=== PATIENT | female | born 1985 | race Caucasian/White ===

== ENCOUNTER 2020-11-24 10:33 | Emergency (ER) | payer MEDICAID, SELFPAY ==
--- NOTE | ~2020-11-24 | CT_ITS ---
EXAMINATION: CT ABDOMEN AND PELVIS WITHOUT CONTRAST CLINICAL INFORMATION: Upper abdominal pain. COMPARISON: None TECHNIQUE: Multidetector volumetric imaging was performed from the superior aspect of the liver through the pubic symphysis. Sagittal and coronal reformatted images were obtained on the technologist's workstation. This CT examination was performed using dose optimization techniques as appropriate, variously including the following: *Automated exposure control *Adjustment of mA and/or kV according to patient size (this includes techniques or standardized protocols for targeted exams where dose is matched to indication/reason for exam; i.e. extremities or head) *Use of iterative reconstruction technique DLP: 1095 mGy-cm FINDINGS: LUNG BASES: The visualized lung bases are unremarkable. LIVER, GALLBLADDER, AND BILIARY TREE: The liver is normal in size, shape, and attenuation. No focal hepatic lesion or biliary ductal dilatation is present. The gallbladder is unremarkable with no evidence of radiopaque gallstones, gallbladder wall thickening, or obvious pericholecystic inflammatory changes. PANCREAS: Unremarkable. SPLEEN: Unremarkable. ADRENAL GLANDS: The left adrenal gland is enlarged measuring 1.6 cm and -1.78 Hounsfield units likely benign myolipoma. KIDNEYS AND URETERS: The kidneys are normal in size, shape, and attenuation. No hydronephrosis, hydroureter, or calculi seen. No perinephric stranding. BLADDER: Unremarkable. GASTROINTESTINAL TRACT: The small and large bowel are unremarkable. The appendix is unremarkable. ABDOMINAL WALL: There is a small umbilical hernia containing intraperitoneal fat. LYMPH NODES: Normal. VASCULAR: Unremarkable. PELVIC VISCERA: There is a left ovarian lesion consistent of fatty tissue and calcification consistent with normal right hip. It measures approximately 2.6 x 1.9 x 2.4 cm. The uterus is anteverted OSSEOUS STRUCTURES: There is loss of disc height and vacuum disc phenomena L5-S1 disc level. No lytic or sclerotic process seen. CT/CT abdomen pelvis wo con IMPRESSION: No acute intra-abdominal process seen. Left ovarian dermoid. Left adrenal myolipoma. Small umbilical hernia.
[2020-11-24 11:01] VITALS: BP 129/87; PULSE 108; RESP 17; TEMP 35.6; O2SAT 98; BMI 40.7
[2020-11-24 11:29] LABS: Glucose Urine UA NEG (NEG); Leukocyte Esterase Urine NEG (NEG); Nitrite Urine NEG (NEG); PH 6.5 (5.0-8.0); Specific Gravity - Urine 1.015 (1.005-1.025); UACC Culture Trigger NO; Urine Blood 1+ (NEG); Urine Ketones 40 MG/DL (NEG); Urine Protein TRACE MG/DL (NEG-TRACE)
[2020-11-24 11:30] LABS: Appearance Urine HAZY; Color Urine YELLOW
[2020-11-24 11:32] LABS: UPreg QC Valid YES; Urine Pregnancy NEGATIVE (NEGATIVE)
[2020-11-24 11:41] LABS: Bacteria Urine 3+ /LPF; Squamous Epithelial Cell Urine 3+ /LPF
--- NOTE | 2020-11-24 12:32 | ED_ITS ---
HPI - Abdominal Pain General Chief Complaint: Abdominal Pain Stated Complaint: abd pain Time Seen by Provider: 11/24/20 12:18 Source: patient Mode of arrival: ambulatory Limitations: no limitations History of Present Illness MD elicited complaint: abdominal pain Onset (ago): day(s) (3) Pain Consistency: constant Location: epigastric Quality: cramping Radiation: none Migration to: no migration Related Data Patient : No Allergies Allergy/AdvReac Type Severity Reaction Status Date / Time codeine AdvReac Nausea Verified 11/24/20 11:41 Review of Systems Review of Systems Yes all other systems are reviewed and are negative Constitutional: Reports no additional constitutional complaints Eyes: Reports no additional eye complaints Reports system reviewed and no additional complaints, except as documented Cardiovascular: Reports no additional cardiovascular complaints Genitourinary: Reports no additional female genitourinary complaints Physical Exam Vital Signs: Vital Signs: Last Vital Signs Temp 98.8 F 11/24/20 15:07 Pulse 80 11/24/20 15:07 Resp 12 11/24/20 15:07 BP 113/54 L 11/24/20 15:07 Pulse Ox 97 11/24/20 15:07 Body Mass Index 40.7 Const: Other: SHE IS AWAKE ALERT ORIENTED X3 SHE IS IN THE NO DISTRESS WHEN I EXAMINED HER SHE WAS USING THE CELL PHONE General: cooperative HENMT: Other: WNL General nose exam: Normal external nose present Face and sinus: Yes normal facial exam Mouth: Normal oral and palatal mucosa present Neck: Neck: Yes normal visual inspection Chest: Chest palpation & inspection: normal inspection of the chest Resp: Effort & Inspection: normal respiratory effort and able to speak in complete sentences Auscultation: clear to auscultation bilaterally Cardio: Jugular venous distension: no JVD Palpation: normal PMI Rate: regular rate Rhythm: regular rhythm GI: Inspection: Yes normal to inspection Palpation (GI): Soft to palpation, not firm, nontender and no guarding Percussion: Yes normal to percussion Auscultation: normal bowel sounds Skin: General skin exam: no rashes or lesions noted, elasticity normal and turgor normal Course Course Course Narrative: Patient has a normal CT scan of the abdomen and pelvis of the labs are within normal limit the pain is in the epigastric area most likely gastritis will discharge the patient home a with Prilosec a clear liquid diet MDM - Abdominal Pain Lab Data Result diagrams: 11/24/20 14:23 11/24/20 14:23 Labs: Lab Results 11/24/20 11/24/20 11/24/20 Range/Units 11:18 11:18 14:23 WBC 7.9 (4.8-10.8) X10*3/uL RBC 4.33 (4.20-5.50) X10*6/uL Hgb 12.6 (12.0-16.0) g/dl Hct 38.7 (37-47) % MCV 89.4 (80-98) fL MCH 29.1 (27.0-33.0) pg MCHC 32.6 (31.0-35.0) g/dl RDW 14.1 (11.0-16.0) % Plt Count 215 (160-400) X10*3/uL MPV 10.0 (9.4-12.3) fL Immature Gran % (Auto) 0.4 (0.0-0.4) % Neut % (Auto) 64.5 (45-73) % Lymph % (Auto) 27.4 (20-40) % [place] % (Auto) 7.2 (2-11) % Eos % (Auto) 0.4 (0-4) % Baso % (Auto) 0.1 (0-2) % Lymph # (Auto) 2.2 (1.2-4.9) X10*3/uL [place] # (Auto) 0.6 (0.1-1.2) X10*3/uL Eos # (Auto) 0.0 (0.0-0.4) X10*3/uL Baso # (Auto) 0.0 (0.0-0.2) X10*3/uL Abs Immat Gran (auto) 0.03 (0.00-0.03) X10*3/uL Absolute Neuts (auto) 5.1 (2.0-8.3) X10*3/uL Absolute Nucleated RBC 0.000 (0.0-0.012) X10*3/uL Nucleated RBC % (auto) 0.0 (0.0-0.2) /100WBC Sodium (135-145) mmol/L Potassium (3.3-5.1) mmol/L Chloride (96-108) mmol/L Carbon Dioxide (22-29) mmol/L Anion Gap (12-20) BUN (9-16) mg/dL Creatinine (0.5-1.4) mg/dL Estim Creat Clear Calc Estimated GFR Random Glucose (60-115) mg/dL Calcium (8.4-10.2) mg/dL Total Bilirubin (0.0-1.0) mg/dL AST (5-31) U/L ALT (0-31) U/L Alkaline Phosphatase (39-117) U/L Total Protein (6.5-8.0) g/dL Albumin (3.5-5.0) g/dL Lipase (8-78) U/L Urine Color YELLOW Urine Appearance HAZY Urine pH 6.5 (5.0-8.0) Ur Specific [place] 1.015 (1.005-1.025) Urine Protein TRACE (NEG-TRACE) MG/DL Urine Glucose (UA) NEG (NEG) MG/DL Urine Ketones 40 (NEG) MG/DL Urine Blood 1+ H (NEG) Urine Nitrite NEG (NEG) Ur Leukocyte Esterase NEG (NEG) Urine RBC 1-4 (0) /HPF Urine WBC 1-4 (0-4) /HPF Ur Squamous Epith Cells 3+ /LPF Urine Bacteria 3+ /LPF Urine Test NEGATIVE (NEGATIVE) 11/24/20 Range/Units 14:23 WBC (4.8-10.8) X10*3/uL RBC (4.20-5.50) X10*6/uL Hgb (12.0-16.0) g/dl Hct (37-47) % MCV (80-98) fL MCH (27.0-33.0) pg MCHC (31.0-35.0) g/dl RDW (11.0-16.0) % Plt Count (160-400) X10*3/uL MPV (9.4-12.3) fL Immature Gran % (Auto) (0.0-0.4) % Neut % (Auto) (45-73) % Lymph % (Auto) (20-40) % [place] % (Auto) (2-11) % Eos % (Auto) (0-4) % Baso % (Auto) (0-2) % Lymph # (Auto) (1.2-4.9) X10*3/uL [place] # (Auto) (0.1-1.2) X10*3/uL Eos # (Auto) (0.0-0.4) X10*3/uL Baso # (Auto) (0.0-0.2) X10*3/uL Abs Immat Gran (auto) (0.00-0.03) X10*3/uL Absolute Neuts (auto) (2.0-8.3) X10*3/uL Absolute Nucleated RBC (0.0-0.012) X10*3/uL Nucleated RBC % (auto) (0.0-0.2) /100WBC Sodium 140 (135-145) mmol/L Potassium 4.3 (3.3-5.1) mmol/L Chloride 105 (96-108) mmol/L Carbon Dioxide 25 (22-29) mmol/L Anion Gap 14 (12-20) BUN 6 L (9-16) mg/dL Creatinine 0.74 (0.5-1.4) mg/dL Estim Creat Clear Calc 121.4 Estimated GFR > 60 Random Glucose 70 (60-115) mg/dL Calcium 9.6 (8.4-10.2) mg/dL Total Bilirubin 0.8 (0.0-1.0) mg/dL AST 16 (5-31) U/L ALT 19 (0-31) U/L Alkaline Phosphatase 95 (39-117) U/L Total Protein 7.2 (6.5-8.0) g/dL Albumin 4.1 (3.5-5.0) g/dL Lipase 14 (8-78) U/L Urine Color Urine Appearance Urine pH (5.0-8.0) Ur Specific [place] (1.005-1.025) Urine Protein (NEG-TRACE) MG/DL Urine Glucose (UA) (NEG) MG/DL Urine Ketones (NEG) MG/DL Urine Blood (NEG) Urine Nitrite (NEG) Ur Leukocyte Esterase (NEG) Urine RBC (0) /HPF Urine WBC (0-4) /HPF Ur Squamous Epith Cells /LPF Urine Bacteria /LPF Urine Test (NEGATIVE) Imaging Data CT scan - abdomen: My impression: ntaining intraperitoneal fat.? LYMPH NODES: Normal. VASCULAR: Unremarkable. PELVIC VISCERA: There is a left ovarian lesion consistent of fatty tissue and calcification consistent with normal right hip. It measures approximately 2.6 x 1.9 x 2.4 cm. The uterus is anteverted OSSEOUS STRUCTURES: There is loss of disc height and vacuum disc phenomena L5-S1 disc level. No lytic or sclerotic process seen.? CT/CT abdomen pelvis wo con IMPRESSION: No acute intra-abdominal process seen. ? Left ovarian dermoid. ? Left adrenal myolipoma. ? Small umbilical hernia.? Dictated By: JAMES BASSETT MD Signed By: <Electronically signed [facility] Past Medical History Attestation statement: The following information was validated with the patient. [facility] Narrative: PATIENT DENIES ANY MEDICAL PROBLEMS Surgical History H/O thyroidectomy Social History Social History Advance Directives: No Advance Directives Information Provided: No Patient : No
[2020-11-24 14:27] LABS: MANUAL DIFF FLAG NO
[2020-11-24 14:32] LABS: Basophils Percent Auto 0.1 % (0-2); Eosinophils Percent Auto 0.4 % (0-4); Hematocrit 38.7 % (37-47); Hemoglobin 12.6 g/dl (12.0-16.0); Imm Gran Abs Auto 0.03 X10*3/uL (0.00-0.03); Imm Gran Pct Auto 0.4 % (0.0-0.4); Lymphocytes Absolute Auto 2.2 X10*3/uL (1.2-4.9); Lymphocytes Percent Auto 27.4 % (20-40); Mean Corpuscular HGB Conc 32.6 g/dl (31.0-35.0); Mean Corpuscular Hemoglobin 29.1 pg (27.0-33.0); Mean Corpuscular Volume 89.4 fL (80-98); Monocytes Absolute Auto 0.6 X10*3/uL (0.1-1.2); Monocytes Percent Auto 7.2 % (2-11); Neutrophils Absolute Auto 5.1 X10*3/uL (2.0-8.3); Neutrophils Percent Auto 64.5 % (45-73); Platelet Count 215 X10*3/uL (160-400); Red Blood Count 4.33 X10*6/uL (4.20-5.50); Red Cell Distribution Width 14.1 % (11.0-16.0); White Blood Count 7.9 X10*3/uL (4.8-10.8)
[2020-11-24 15:02] LABS: Alanine Aminotransferase 19 U/L (0-31); Albumin Level 4.1 g/dL (3.5-5.0); Alkaline Phosphatase 95 U/L (39-117); Anion Gap 14 (12-20); Aspartate Amino Transferase 16 U/L (5-31); Bilirubin Total 0.8 mg/dL (0.0-1.0); Blood Urea Nitrogen 6 mg/dL (9-16); Calcium 9.6 mg/dL (8.4-10.2); Carbon Dioxide 25 mmol/L (22-29); Chloride 105 mmol/L (96-108); Creatinine Clr Calc Pharmacy 121.4; Estimated Glomerular Filt Rate > 60; Glucose Random 70 mg/dL (60-115); Lipase 14 U/L (8-78); Potassium 4.3 mmol/L (3.3-5.1); Sodium 140 mmol/L (135-145); Total Protein 7.2 g/dL (6.5-8.0)
[2020-11-24 15:07] VITALS: BP 113/54; PULSE 80; RESP 12; TEMP 37.1; O2SAT 97
== END 2020-11-24 15:42 | disposition home or self-care (01) ==
PROVIDERS: Emergency Provider Emergency Medicine; PCP Internal Medicine
DX: K29.70 Gastritis, unspecified, without bleeding (principal); R10.13 Epigastric pain
CPT/HCPCS: 36415; 74176; 80053; 81001; 81025; 83690; 85025; 99284

== ENCOUNTER 2021-01-08 08:45 | Emergency (ER) | payer MEDICAID, SELFPAY ==
[2021-01-08 09:55] VITALS: BP 129/73; PULSE 83; RESP 18; TEMP 36.2; O2SAT 100; BMI 41.1
[2021-01-08] MEDS: methylPREDNISolone Sod Succ 125 MG/2 ML VIAL IVPUSH (11:16)
[2021-01-08] MEDS: Famotidine/PF 20 MG/2 ML VIAL IVPUSH (11:16)
[2021-01-08] MEDS: diphenhydrAMINE HCL 50 MG/ML VIAL IVPUSH (11:16)
--- NOTE | 2021-01-08 12:05 | ED_ITS ---
HPI - Allergic Reaction General Chief complaint: General Medical Stated complaint: LIPS FACE SWELLING SOB SORE THROAT Time Seen by Provider: 01/08/21 10:24 Source: patient Mode of arrival: ambulatory Limitations: no limitations History of Present Illness HPI narrative: 35-year-old female presenting to the ED with complaints of facial swelling on to the right side and lip swelling for the past few days worse today with associated feeling like she is having trouble swallowing and breathing. She reports that a few weeks ago she was being treated with topical creams for her acne although she felt like it was not helping her therefore she continue the treatment weeks ago. Then over the weekend patient felt like her face was swollen even more therefore she attempted to place some Cetaphil on her face and she reports it provided mild symptomatic relief although not completely therefore she came here for further evaluation treatment. She denies any new substances new medications or any other symptoms complaints or concerns at this time. MD complaint: allergic reaction and facial swelling Onset (ago): day(s) (3 days worse today) Exposure: unknown Symptoms: itching, facial swelling, lip swelling, difficulty swallowing and difficulty breathing Severity: mild Treatment prior to arrival: none Previous Allergic Reaction History: none Related Data Previous Rx's Medication Instructions Recorded omeprazole magnesium 20 mg 20 mg PO DAILY 28 Days #28 tab 11/24/20 tablet,delayed release (Prilosec OTC) cephalexin 500 mg capsule 500 mg PO Q6H 10 Days #40 cap 01/08/21 diphenhydramine HCl 25 mg tablet 50 mg PO TID PRN #10 tab 01/08/21 (Benadryl Allergy) doxycycline monohydrate 100 mg 100 mg PO BID 10 Days #20 cap 01/08/21 capsule famotidine 20 mg tablet (Pepcid) 20 mg PO BID #10 tab 01/08/21 prednisone 20 mg tablet 40 mg PO DAILY 5 Days #10 tab 01/08/21 Allergies Allergy/AdvReac Type Severity Reaction Status Date / Time codeine AdvReac Nausea Verified 11/24/20 11:41 Review of Systems Review of Systems: Constitutional : No Fever, No Chills , no body aches, no recent illness Head/Face: Positive facial/lip swelling, No facial redness ENT/Mouth : Positive pain with swallowing, No oral/throat swelling, No Hoarseness, No Swallowing Difficulty Eyes: No Eye Pain, No Swelling, No Redness Cardiovascular : Positive feeling shortness of breath, No Chest Pain, No palpitations Respiratory : Positive feeling shortness of breath, No Cough, No Sputum, No Wheezing Gastrointestinal : No Nausea, No Vomiting, No Diarrhea, No abdominal Pain Genitourinary : No Dysuria, No Urinary Frequency, No Hematuria Musculoskeletal : No joint pain, No Myalgias, No Joint Swelling Skin : No Skin Lesions, positive rash Neuro : No Weakness, No Numbness, No Headache, No dizziness, No tingling Psych : No Anxiety/Panic, No Depression Heme/Lymph: No Bruising, No Lymphadenopathy Endocrine : No Polyuria, No Polydipsia Denies changes in lotions or detergents. Denies new medications or any changes in medications. Denies drainage from rash. Denies any recent sick contacts or recent travel. Yes all other systems are reviewed and are negative [facility] Past Medical History Attestation statement: The following information was validated with the patient. Surgical History H/O thyroidectomy Social History Social History Alcohol intake: never Patient Tobacco Use Status: Never used Tobacco Advance Directives: No Patient : No Physical Exam Vital Signs: Vital Signs: Last Vital Signs Temp 97.2 F 01/08/21 09:55 Pulse 83 01/08/21 09:55 Resp 18 01/08/21 09:55 BP 129/73 01/08/21 09:55 Pulse Ox 100 01/08/21 09:55 Body Mass Index 41.1 vital signs have been reviewed as normal and appeared to be correct. Blood pressure normal. Heart rate normal. Respiration rate normal. Temperature normal. Oxygen saturation normal. Appearance: Alert. Oriented X3. No acute distress. Head: Normal external exam. Normocephalic. Atraumatic. Patient noted to have moderate acne to the right side of her face with pustules/soft tissue swelling/erythema. Patient is also noted to have bilateral lip swelling/erythema and she reports itchiness to bilateral lips. Eyes: PERRLA. EOMI. Conjunctiva and sclera normal. Eyelids normal. ENT: EAC normal. TM's Normal. Pharynx normal. Uvula midline. Moist mucous membranes. No trismus noted. No drooling noted. No muffled voice noted. Neck: Normal inspection. Neck supple. FROM. No adenopathy. Thyroid Normal. No meningeal signs. No neck mass noted. CVS: Normal heart rate and rhythm. Heart sound normal. Pulses normal throughout. No murmurs/rales/gallops. Respiratory: No respiratory distress. Painless inspiration. Breath sounds normal. No wheezes/rales/rhonchi noted. Chest nontender. No accessory muscle usage noted or decreased air movement noted. Abdomen: Soft and nontender. Bowel sounds normal in all 4 quadrants. No distention noted. No organomegaly noted. No visible injury noted. Back: Full range of motion noted. No rashes/lesion/induration/fluctuance or signs of infection noted. Skin: Skin warm and dry. Normal skin color. Normal skin turgor. No rashes/lesions/lacerations noted. Extremities: No lower extremity edema. Extremities exhibit normal range of motion. Extremities nontender. Neuro: Oriented X 3. No motor deficit. No sensory deficit. Reflexes normal. Normal steady gait. No focal neuro deficits noted. Vascular: + radial pulses/+ 2 distal pedal pulses/+2 dorsalis pedis b/l. Normal cap refill. No cyanosis noted to upper extremity nails and lower extremity toes nails. Course Course Course Narrative: IMP/Plan: Allergic rxn. Not anaphylaxis. Not sepsis/ infectious etiology. Patient well appearing in no acute distress, breathing easily she does report throat symptoms although on exam patient is speaking full sentences and handling secretions without any difficulty. No drooling/trismus/stridor noted. There is no obvious threat to airway. Lungs are CTA in all valerio. Patient does have lip swelling otherwise no other signs of angioedema. No signs of stridor, airway compromise, anaphylaxis or anaphylactic shock. Not c/w SSSS/ TEN/ Eryth multiforme/ [place]. Given HPI and PE - patient with allergic reaction to unknown substance. She does have lip swelling. Although no trouble swallowing or breathing. Lungs are clear to auscultation. Abdomen is soft nontender. Will give IV steroids/Benadryl and Pepcid and if symptoms improve we will DC home with steroids and instructions to follow-up with PCP for referral for an allergy test. Along with instructions return if any new or worsening symptoms. Patient understands agrees with this plan. MDM - Allergic Reaction Medical Records Attestation: I reviewed the patient's medical records. Discharge Plan Discharge Clinical Impression: Allergic reaction, Swelling of both lips, Acne, Cellulitis Patient Disposition: Home, Self-Care Instructions: Angioedema (ED), General Allergic Reaction (ED), Allergy Testing (ED), Cellulitis (ED), Warm Compress or Soak (ED) Prescriptions: New prednisone 20 mg tablet 40 mg PO DAILY 5 Days Qty: 10 RF: 0 diphenhydramine HCl [Benadryl Allergy] 25 mg tablet 50 mg PO TID PRN (Reason: allergic reaction) Qty: 10 RF: 0 famotidine [Pepcid] 20 mg tablet 20 mg PO BID Qty: 10 RF: 0 doxycycline monohydrate 100 mg capsule 100 mg PO BID 10 Days Qty: 20 RF: 0 cephalexin 500 mg capsule 500 mg PO Q6H 10 Days Qty: 40 RF: 0 No Action omeprazole magnesium [Prilosec OTC] 20 mg tablet,delayed release (DR/EC) 20 mg PO DAILY 28 Days Qty: 28 RF: 0 Referrals: Melania Correa MD [Primary Care Provider] - 2 days Marilynn Rose MD [Physician] - 2 days Stand Alone Forms: Work/School Release Print Language: Mohawk
--- NOTE | 2021-01-08 12:19 | PC.NURSE ---
PT RESTING QUIETLY, NO DIFF BREATHING, LUNGS CLEAR, AWAITING DISCHARGE.
[2021-01-08 12:27] LABS: IDNOW Serial# 08D9AD1C; Strep A Nucleic Acid Negative (Negative)
== END 2021-01-08 12:30 | disposition home or self-care (01) ==
PROVIDERS: Physician Assistant Medical; Emergency Provider Emergency Medicine; PCP Internal Medicine
DX: L23.9 Allergic contact dermatitis, unspecified cause (principal); J02.9 Acute pharyngitis, unspecified; R22.0 Localized swelling, mass and lump, head; R06.02 Shortness of breath; Z79.899 Other long term (current) drug therapy
CPT/HCPCS: 36415; 87651; 96374; 96375; 99283; 99284; J1200; J2930

== ENCOUNTER 2021-09-27 15:23 | Outpatient (REF) | payer OTHER, SELFPAY ==
--- NOTE | ~2021-09-27 | XR_ITS ---
EXAMINATION: XR TIBIA AND FIBULA, LEFT CLINICAL INFORMATION: Injury COMPARISON: None TECHNIQUE: AP and lateral views of the left tibia and fibula were obtained. FINDINGS: No fracture or cortical disruption. Appropriate alignment of the knee and ankle. The soft tissues are swollen anteriorly at the level of the proximal tibia. XR/XR tibia fibula LT 2V IMPRESSION: Mild soft tissue swelling. No fracture or malalignment.
== END 2021-09-27 15:24 | disposition home or self-care (01) ==
LOC: HO.HMGCX 15:23
PROVIDERS: PCP Internal Medicine
DX: R60.0 Localized edema (principal); T14.90XA Injury, unspecified, initial encounter
CPT/HCPCS: 73590

== ENCOUNTER 2023-02-10 12:48 | Outpatient (REF) | payer OTHER, MEDICAID, SELFPAY ==
[2023-02-10 14:04] LABS: MANUAL DIFF FLAG NO
[2023-02-10 14:09] LABS: Basophils Percent Auto 0.4 % (0-2); Eosinophils Percent Auto 0.3 % (0-4); Hematocrit 35.3 % (37.0-47.0); Hemoglobin 11.6 g/dl (12.0-16.0); Imm Gran Abs Auto 0.02 X10*3/uL (0.00-0.03); Imm Gran Pct Auto 0.3 % (0.0-0.4); Lymphocytes Absolute Auto 2.6 X10*3/uL (1.2-4.9); Lymphocytes Percent Auto 33.8 % (20-40); Mean Corpuscular HGB Conc 32.9 g/dl (31.0-35.0); Mean Corpuscular Hemoglobin 30.1 pg (27.0-33.0); Mean Corpuscular Volume 91.5 fL (80.0-98.0); Mean Platelet Volume 10.5 fL (9.4-12.3); Monocytes Absolute Auto 0.5 X10*3/uL (0.1-1.2); Monocytes Percent Auto 6.5 % (2-11); Neutrophils Absolute Auto 4.5 x10*3/uL (2.0-8.3); Neutrophils Percent Auto 58.7 % (45-73); Platelet Count 232 X10*3/uL (160-400); Red Blood Count 3.86 X10*6/uL (4.20-5.50); White Blood Count 7.7 X10*3/uL (4.8-10.8)
== END 2023-02-10 12:49 | disposition home or self-care (01) ==
LOC: HO.CHCLDS 12:48
PROVIDERS: Visit Provider Internal Medicine
DX: N92.0 Excessive and frequent menstruation with regular cycle (principal)
CPT/HCPCS: 36415; 85025

== ENCOUNTER 2023-02-11 13:23 | Outpatient (REF) | payer OTHER, MEDICAID, SELFPAY ==
[2023-02-11 15:51] LABS: TSH reflex Free T4 1.46 uIU/mL (0.32-4.0)
[2023-02-12 03:51] LABS: CT PCR NOT DETECTED (Not Detect.); NG PCR NOT DETECTED (Not Detect.)
== END 2023-02-11 13:24 | disposition home or self-care (01) ==
LOC: HO.CHCLDS 13:23
PROVIDERS: Visit Provider Advanced Practice Midwife
DX: Z11.3 Encounter for screening for infections with a predominantly sexual mode of transmission (principal); N93.9 Abnormal uterine and vaginal bleeding, unspecified
CPT/HCPCS: 0353U; 36415; 84443

== ENCOUNTER 2024-03-01 10:24 | Outpatient (REF) | payer OTHER, SELFPAY ==
[2024-03-01 14:45] LABS: MANUAL DIFF FLAG NO
[2024-03-01 14:49] LABS: Basophils Percent Auto 0.4 % (0-2); Eosinophils Percent Auto 0.4 % (0-4); Imm Gran Abs Auto 0.01 X10*3/uL (0.00-0.03); Imm Gran Pct Auto 0.1 % (0.0-0.4); Lymphocytes Absolute Auto 2.2 X10*3/uL (1.2-4.9); Lymphocytes Percent Auto 30.3 % (20-40); Mean Corpuscular HGB Conc 32.4 g/dl (31.0-35.0); Mean Corpuscular Hemoglobin 29.4 pg (27.0-33.0); Mean Corpuscular Volume 90.7 fL (80.0-98.0); Mean Platelet Volume 10.7 fL (9.4-12.3); Monocytes Absolute Auto 0.5 X10*3/uL (0.1-1.2); Monocytes Percent Auto 6.3 % (2-11); Neutrophils Absolute Auto 4.6 x10*3/uL (2.0-8.3); Neutrophils Percent Auto 62.5 % (45-73); Platelet Count 273 X10*3/uL (160-400); Red Blood Count 4.08 X10*6/uL (4.20-5.50); Red Cell Distribution Width 14.4 % (11.0-16.0); White Blood Count 7.3 X10*3/uL (4.8-10.8)
[2024-03-01 15:05] LABS: Estimated Average Glucose 103 mg/dL; Hemoglobin A1C 107.9367 umol/L; Hemoglobin A1c % 5.2 % (<6.0); Total Hemoglobin (HGBA1C) 3221.9948 umol/L
[2024-03-01 16:10] LABS: Alanine Aminotransferase 12 U/L (0-31); Alkaline Phosphatase 88 U/L (39-117); Anion Gap 11 (12-20); Aspartate Amino Transferase 19 U/L (5-31); Bilirubin Direct 0.3 mg/dL (0.0-0.5); Bilirubin Total 0.8 mg/dL (0.0-1.0); Blood Urea Nitrogen 5 mg/dL (9-16); Calcium 9.1 mg/dL (8.4-10.2); Carbon Dioxide 23 mmol/L (22-29); Chloride 108 mmol/L (96-108); Cholesterol 126 mg/dL (<200); Estimated Glomerular Filt Rate > 60; Glucose Fasting 78 mg/dL (60-99); HDL Cholesterol 50 mg/dL (>40); LDL Cholesterol Calculated 67 mg/dL (<100); Sodium 138 mmol/L (135-145); Total Protein 7.2 g/dL (6.5-8.0); Triglycerides 46 mg/dL (<150)
[2024-03-01 16:31] LABS: Vitamin D 25-OH Total 16.6 ng/mL (>30)
[2024-03-02 18:18] LABS: Lyme Abs Screen <0.90 index
== END 2024-03-01 10:25 | disposition home or self-care (01) ==
LOC: HO.CHCLDS 10:24
PROVIDERS: Pediatrics; PCP Internal Medicine; Referring Provider Internal Medicine; Visit Provider Internal Medicine
DX: R42 Dizziness and giddiness (principal); N92.0 Excessive and frequent menstruation with regular cycle; E66.01 Morbid (severe) obesity due to excess calories; M25.561 Pain in right knee; Z13.1 Encounter for screening for diabetes mellitus
CPT/HCPCS: 36415; 80048; 80061; 80076; 82306; 83036; 84443; 85025; 86617; 86618

== ENCOUNTER 2024-10-27 10:48 | Outpatient (REF) | payer MEDICAID, SELFPAY ==
--- OUTSIDE RECORDS SUMMARY | 2024-10-27 11:32 | XMS_ITS | Encounter Summary ---
Author Organization [employer] Address [address] [place] [address] [address] [place] [address] Care Team Providers Care Wind Turbine Mechanic Name Role Phone Melania Correa MD Primary Care Provider [phone] Reason for Visit * Reason Onset Date Comments Unable to post insurances on PAR side 07/19/2024 Encounter Details Date Type Department Care Team ([facility] Contact Info) Description 07/19/2024 Telephone [facility] [address] [place] [address] Hilario Andre, DMD [address] [place] [address] Unable to post insurances on PAR side Social History Tobacco Use Types Packs/Day Years Used Date Smoking Tobacco: Never Passive Smoke Exposure: Never Smokeless Tobacco: Never Alcohol Use Standard Drinks/Week Comments Never 0 (1 standard drink = 0.6 oz pur e alcohol) Depression Answer Date Recorded Patient Health Questionnaire-9 Score 23 07/01/2024 Patient Health Questionnaire-9 Score 23 07/01/2024 Last PHQ-9: Questionnaire Data Not on file 0 07/01/2024 Housing Stability Answer Date Recorded What is your housing situation today? I have kaveh vitale 02/10/[address] you li ve. Do you have problems with any of the following? None of the above 02/10/2023 Food Insecurity Answer Date Recorded Within the past 12 months, y ou worried that your food would run out before you got money to buy more: Never True 02/10/2023 Within the past 12 months,th e food you bought just didn't last and you didn't have enough money to get more: Never True Transportation Answer Date Recorded In the past 12 months, has l ack of transportation kept you from medical appts, meetings, work or from getting things needed for daily living? No 02/10/2023 Utilities Answer Date Recorded In the past 12 months, has t he electric, gas, oil or water company threatened to shut off services in your home? No 02/10/2023 Depression Answer Date Recorded Patient Health Questionnaire-2 Score 6 07/01/2024 Comments No Sex and Gender Information Value Date Recorded Sex Assigned at Female 02/25/2022 10:18 AM EDT Legal Sex Female 10:18 AM EDT Gender Identity Female 02/25/2022 10:18 AM EDT Sexual Orientation Straight 02/25/2022 10 :18 AM EDT documented as of this encounter Miscellaneous Notes * Telephone Encounter - Ana Barajas - 07/19/2024 9:20 AM EDT Cadence is coming in for 11:30 am emergency appt and unable to post neither [employer] nor [employer] portal not running on PAR side DR documented in this encounter Plan of Treatment Upcoming Encounters Date Type Department Care Team (Late st Contact Info) Description 12/06/2024 9:15 AM EDT Office Visit [facility] [address] [place] [address] Melania Correa MD [address] [place] [address] documented as of this encounter Visit Diagnoses Not on filedocumented in this encounter Additional Health Concerns Assessment Noted Time PHQ-9 Depression Total Score: 23 025 3:17 PM EST documented as of this encounter Care Teams Wind Turbine Mechanic Relationship Specialty Start Date End Date Melania Correa MD [address] [place] [address] PCP - General Internal Medicine 02/09/19 documented as of this encounter
--- OUTSIDE RECORDS SUMMARY | 2024-10-27 11:32 | XMS_ITS | Encounter Summary ---
Author Organization [facility] Address [address] [place] [id number] Phone Care Team Providers Care Branch Sales And Service Representative Name Role Phone Unavailable Primary Care Provider Unavailabl e Encounter Details Date Type Department Care Team (Late st Contact Info) Description 05/08/2011 Documentation [facility] [address] [place] [address] Family Medicine, Physician [facility] [place] [address] Social History Tobacco Use Types Packs/Day Years Used Date Smoking Tobacco: Never Assessed Comments Unknown Sex and Gender Information Value Date Recorded Sex Assigned at Not on file Legal Sex Female 3:35 PM EDT Gender Identity Not on file Sexual Orientation Not on file documented as of this encounter Plan of Treatment Not on file documented as of this encounter Visit Diagnoses Not on filedocumented in this encounter
== END 2024-10-27 10:49 | disposition home or self-care (01) ==
LOC: HO.CHCLDS 10:48
PROVIDERS: Visit Provider Internal Medicine
DX: Z32.00 Encounter for pregnancy test, result unknown (principal)
CPT/HCPCS: 36415; 84702